=== PATIENT | male | born 1985 | race African-American/Black ===

== ENCOUNTER → 2016-12-23 15:28 | Emergency (ER) | payer OTHER ==
[~2016-12-23 15:28] MED LIST: Amoxicillin/Clavulanate TAB* 875 MG PO ONE
[2016-12-23 15:33] VITALS: BP 123/52
--- NOTE | 2016-12-23 16:53 | ED ---
Skin Complaint - HPI Summary HPI Summary: Patient presents with an abscess at the top of his gluteal cleft that has worsened over the last week. He has had four of these in the past, but they typically resolve on their own. He has pain and fluctuance, but no fever or drainage. - History of Current Complaint Chief Complaint: EDRashSkinAbscess Time Seen by Provider: 12/23/16 15:43 Stated Complaint: CYST ON BACK Hx Obtained From: Patient Onset/Duration: Started Weeks Ago - 1, Atraumatic, Worse Since - last week Timing: Constant Onset Severity: Mild Current Severity: Severe Pain Intensity: 5 Skin Location: Other: - superior gluteal cleft Character: Swelling, Pain, Redness Aggravating Symptom(s): Touch Alleviating Symptom(s): Nothing Associated Signs & Symptoms: Tenderness PMH/Surg Hx/FS Hx/Imm Hx Previously Healthy: Yes Infectious Disease History: Denies: Traveled Outside the [place] in Last 30 Days - Family History Known Family History: Positive: None - Social History Occupation: Employed Full-time Lives: With Family Alcohol Use: Occasionally Alcohol Amount: once a month Substance Use Type: Reports: None Smoking Status (MU): Never Smoked Tobacco Review of Systems Negative: Fever, Chills Positive: Other - pea size abscess superior gluteal cleft All Other Systems Reviewed And Are Negative: Yes Physical Exam Triage Information Reviewed: Yes Vital Signs On Initial Exam: Initial Vitals Temp Pulse Resp BP 98.7 F 82 18 123/52 12/23/16 15:29 12/23/16 15:29 12/23/16 15:29 12/23/16 15:29 Vital Signs Reviewed: Yes Appearance: Positive: Well-Appearing, Well-Nourished, Pain Distress Skin: Positive: Warm, Skin Color Reflects Adequate Perfusion, Dry, Tender - pea size abscess superior gluteal cleft, Soft Head/Face: Positive: Normal Head/Face Inspection Eyes: Positive: EOMI, NIECY, Conjunctiva Clear ENT: Positive: Hearing grossly normal Respiratory/Lung Sounds: Positive: Breath Sounds Present Cardiovascular: Positive: RRR Musculoskeletal: Negative: Edema Left Neurological: Positive: Sensory/Motor Intact, Alert, Oriented to Person Place, Time, NV Bundle Intact Distally Psychiatric: Positive: Affect/Mood Appropriate AVPU Assessment: Alert Procedures - Incision and Drainage Site: superior gluteal cleft Anesthesia: Local, Lidocaine Instrument(s): Scalpel Packing: Other - open to drain Diagnostics - Vital Signs Vital Signs Temp Pulse Resp BP Pulse Ox 12/23/16 15:32 98.7 F 81 20 123/52 98 12/23/16 15:29 98.7 F 82 18 123/52 - Laboratory Lab Statement: Any lab studies that have been ordered have been reviewed, and results considered in the medical decision making process. Course/Dx - Differential Diagnoses - Skin Complaint Differential Diagnoses: Abscess, Cellulitis, Contact Dermatitis, Local Allergic Reaction, MRSA, Urticaria, VRE - Diagnoses Provider Diagnoses: Abscess Discharge - Discharge Plan Condition: Stable Disposition: HOME Prescriptions: Amoxicillin/Clavulanate TAB* [Augmentin TAB 875*] 875 mg PO BID #15 tab Patient Education Materials: Abscess (ED) Forms: *Work Release Referrals: Tere Barrett MD [Primary Care Provider] - Additional Instructions: Please take the medication prescribed until it is completely gone. Soak your wound in warm soapy water several times daily to allow any further drainage. Cover with clean gauze as needed. Follow-up with your primary care provider for a wound check in 2-3 days. Please call the number listed for the surgeon for an appointment for evaluation as well. Return to the emergency department if symptoms worsen.
[2016-12-23] MEDS: Amoxicillin/Clavulanate TAB* 875 MG PO ONE ×2 (17:17→18:32)
== END | disposition home or self-care (01) ==
LOC: ED 15:28
DX: L02.91 Cutaneous abscess, unspecified (principal)
CPT/HCPCS: 10060; 87070; 87205; 87640; 87641; 99282; A9270-GY

== ENCOUNTER → 2017-04-04 18:48 | Emergency (ER) | payer OTHER ==
[~2017-04-04 18:48] MED LIST changes: -Amoxicillin/Clavulanate TAB* 875 MG PO ONE; +Sulfamethox/Trimethoprim DS 800/160* TAB PO ONE; +oxyCODONE/Acetamin 5/325 MG* TAB PO ONE
[2017-04-04 20:52] VITALS: BP 147/77
--- NOTE | 2017-04-04 23:54 | ED ---
Nina Hood Rebecca, scribed for PaulaRigoberto willams on 04/04/17 at 2015 . Skin Complaint - HPI Summary HPI Summary: Pt is a 31 y/o M who presents to ED c/o abscess for 3-4 days. Sx are in the sacral region with associated pain being severe, ranked 9/10. Sx aggravated and alleviated by nothing. Prior similar episodes of abscesses/cysts which he has had drained after allowing them to become significantly more severe, per pt. - History of Current Complaint Chief Complaint: EDRashSkinAbscess Time Seen by Provider: 04/04/17 20:02 Stated Complaint: CYST ON BACK Hx Obtained From: Patient Onset/Duration: Started Days Ago - 3-4 days, Still Present Current Severity: Severe Pain Intensity: 9 Pain Scale Used: 0-10 Numeric Skin Location: Other: - Sacral Character: Raised Aggravating Symptom(s): Nothing Alleviating Symptom(s): Nothing Associated Signs & Symptoms: Negative - Allergy/Home Medications Allergies/Adverse Reactions: Allergies Allergy/AdvReac Type Severity Reaction Status Date / Time No Known Allergies Allergy Verified 04/04/17 19:26 PMH/Surg Hx/FS Hx/Imm Hx Previously Healthy: Yes Endocrine/Hematology History: Denies: Hx Diabetes Cardiovascular History: Denies: Hx Coronary Artery Disease Infectious Disease History: No Infectious Disease History: Denies: Traveled Outside the [place] in Last 30 Days - Family History Known Family History: Negative: Diabetes - Social History Alcohol Use: Occasionally Alcohol Amount: once a month Substance Use Type: Reports: None Smoking Status (MU): Never Smoked Tobacco Review of Systems Negative: Fever Positive: Other - Abscess in the sacral region All Other Systems Reviewed And Are Negative: Yes Physical Exam - Summary Physical Exam Summary: Appearance: Well appearing, no pain distress Skin: warm, dry, reflects adequate perfusion Head/face: normal Eyes: EOMI, NIECY ENT: normal Neck: supple, nontender Respiratory: CTA, breath sounds present Cardiovascular: RRR, pulses symmetrical Abdomen: nontender, soft Bowel: present Musculoskeletal: strength/ROM intact, tenderness over the sacral area with mild swelling that is firm in consistency with no fluctuance Neuro: normal, sensory motor intact, A&Ox3 Triage Information Reviewed: Yes Vital Signs On Initial Exam: Initial Vitals Temp Pulse Resp BP Pulse Ox 99.5 F 78 16 131/70 100 04/04/17 19:20 04/04/17 19:20 04/04/17 19:20 04/04/17 19:20 04/04/17 19:20 Vital Signs Reviewed: Yes Diagnostics - Vital Signs Vital Signs Temp Pulse Resp BP Pulse Ox 04/04/17 19:20 99.5 F 78 16 131/70 100 - Laboratory Lab Statement: Any lab studies that have been ordered have been reviewed, and results considered in the medical decision making process. Course/Dx - Course Assessment/Plan: Pt is a 31 y/o M who presents to ED c/o abscess for 3-4 days, in the sacral region with associated pain being severe, ranked 9/10. Prior similar episodes of abscesses/cysts which he has had drained after allowing them to become significantly more severe, per pt. Pt reports that he would like to try Abx initially and will follow up with surgery for I&D. Advised to come to the ED for any worsening of symptoms and follow up for I&D in 3 days. Pt will be D/C to home with Dx of pilonidal cyst with abscess, Rx for Motrin, Bactrim and Percocet with a follow up with Dr. Levin (surgery). He understands and agrees. Elevated BP noted and advised to f/u. - Diagnoses Provider Diagnoses: Pilonidal cyst with abscess Discharge - Discharge Plan Condition: Stable Disposition: HOME Prescriptions: Ibuprofen TAB* [Motrin TAB* 600 MG] 600 mg PO Q8H PRN #20 tab MDD 3 PRN Reason: Pain Sulfamethox/Trimethoprim DS* [Bactrim DS 800/160 TAB*] 1 tab PO BID #20 tab oxyCODONE/Acetamin 5/325 MG* [Percocet 5/325 TAB*] 1 tab PO Q8H PRN #10 tab MDD 3 PRN Reason: Pain Patient Education Materials: Abscess (ED) Referrals: Tere Barrett MD [Primary Care Provider] - Jai Levin MD [Medical Doctor] - (Follow up with surgery for incision and drainage.) The documentation as recorded by the Nina clark Rebecca accurately reflects the service I personally performed and the decisions made by Adamaris hamm Emmanuel.
== END | disposition home or self-care (01) ==
LOC: ED 18:48
DX: L05.01 Pilonidal cyst with abscess (principal)
CPT/HCPCS: 99282; A9270-GY

== ENCOUNTER 2019-02-22 19:29 | Emergency (ER) | payer SELFPAY ==
[2019-02-22 19:56] VITALS: BP 139/66
--- NOTE | 2019-02-22 20:13 | UC ---
Complaint Male HPI - HPI Summary HPI Summary: 33-year-old male comes in with a chief complaint of burning with urination for several days. Also has noticed some blood in the urine. Denies any testicular pain or abdominal pain or flank pain. Denies any skin lesions. - History of Current Complaint Chief Complaint: UCGU Stated Complaint: PERSONAL ISSUE Time Seen by Provider: 02/22/19 19:51 Pain Intensity: 0 - Allergies/Home Medications Allergies/Adverse Reactions: Allergies Allergy/AdvReac Type Severity Reaction Status Date / Time No Known Allergies Allergy Verified 02/22/19 20:00 PMH/Surg Hx/FS Hx/Imm Hx Previously Healthy: Yes - Surgical History Surgical History: None - Family History Known Family History: Positive: None Negative: Diabetes - Social History Alcohol Use: Occasionally Alcohol Amount: once a month Substance Use Type: None Smoking Status (MU): Never Smoked Tobacco Review of Systems All Other Systems Reviewed And Are Negative: Yes Constitutional: Positive: Negative Skin: Positive: Negative Eyes: Positive: Negative ENT: Positive: Negative Respiratory: Positive: Negative Cardiovascular: Positive: Negative Gastrointestinal: Positive: Negative Genitourinary: Positive: Dysuria, Hematuria Motor: Positive: Negative Neurovascular: Positive: Negative Musculoskeletal: Positive: Negative Neurological: Positive: Negative Psychological: Positive: Negative Is Patient Immunocompromised?: No Physical Exam Triage Information Reviewed: Yes Appearance: Well-Appearing, No Pain Distress, Well-Nourished Vital Signs: Initial Vital Signs Temp 99.8 F 02/22/19 19:47 Pulse 86 02/22/19 19:47 Resp 12 02/22/19 19:47 BP 139/66 02/22/19 19:47 Pulse Ox 98 02/22/19 19:47 Vital Signs Reviewed: Yes Eye Exam: Normal Eyes: Positive: Conjunctiva Clear Neck: Positive: Supple Respiratory: Positive: Lungs clear, Normal breath sounds, No respiratory distress Cardiovascular: Positive: RRR Abdomen Description: Positive: Nontender, Soft. Negative: CVA Tenderness (R), CVA Tenderness (L) Bowel Sounds: Positive: Present Musculoskeletal: Positive: Strength Intact, ROM Intact Neurological: Positive: Alert Psychological: Positive: Age Appropriate Behavior Skin Exam: Normal Complaint Male Course/Dx - Course Course Of Treatment: I discussed the urine following findings with the patient and his family. There is blood in the urine no leukocytes or nitrites. Most common cause would be a urinary tract infection therefore treating with Bactrim DS by mouth twice a day for 7 days. However if the hematuria does not completely resolved he may need further workup and therefore I'm referring him to urology to ensure resolution of this issue. Patient's to be reevaluated sooner if worse or any questions or concerns. - Differential Dx/Diagnosis Provider Diagnosis: Hematuria, Dysuria Discharge - Sign-Out/Discharge Documenting (check all that apply): Patient Departure All imaging exams completed and their final reports reviewed: No Studies - Discharge Plan Condition: Stable Disposition: HOME Prescriptions: Sulfamethox/Trimethoprim DS* [Bactrim DS 800/160 TAB*] 1 tab PO BID #14 tab Patient Education Materials: Hematuria (ED), Dysuria (ED) Referrals: Tere Barrett MD [Primary Care Provider] - Liu Li MD [Medical Doctor] - Ryan Aguilar MD [Medical Doctor] - Additional Instructions: FOLLOW UP WITH UROLOGY FOR THE BLOOD IN YOUR URINE AND DYSURIA. GET RECHECKED SOONER IF YOUR CONDITION WORSENS; PAIN, FEVER, YOU FEEL ILL OR ANY QUESTIONS OR CONCERNS. - Billing Disposition and Condition Condition: STABLE Disposition: Home
[2019-02-22] MEDS ORDERED: Sulfamethox/Trimethoprim DS 800/160* TAB PO ONE (20:40)
[2019-02-23 22:36] LABS: Chlamydia trachomatis NAA Negative (Negative); Neisseria gonorrhoeae (GC) NAA Negative (Negative)
--- NOTE | 2019-02-24 16:52 | UC ---
- Progress Note Progress Note: notify pt no UTI stop antibiotic recheck if still symptomatic Course/Dx - Diagnoses Provider Diagnoses: Hematuria, Dysuria Discharge - Sign-Out/Discharge Documenting (check all that apply): Post-Discharge Follow Up All imaging exams completed and their final reports reviewed: No Studies - Discharge Plan Condition: Stable Disposition: HOME Prescriptions: Sulfamethox/Trimethoprim DS* [Bactrim DS 800/160 TAB*] 1 tab PO BID #14 tab Patient Education Materials: Hematuria (ED), Dysuria (ED) Referrals: Tere Barrett MD [Primary Care Provider] - Liu Li MD [Medical Doctor] - Ryan Aguilar MD [Medical Doctor] - Additional Instructions: FOLLOW UP WITH UROLOGY FOR THE BLOOD IN YOUR URINE AND DYSURIA. GET RECHECKED SOONER IF YOUR CONDITION WORSENS; PAIN, FEVER, YOU FEEL ILL OR ANY QUESTIONS OR CONCERNS. - Billing Disposition and Condition Condition: STABLE Disposition: Home
== END 2019-02-22 20:45 | disposition home or self-care (01) ==
LOC: UCEAST 19:29
DX: R30.0 Dysuria (principal); R31.9 Hematuria, unspecified
CPT/HCPCS: 81002; 87086; 87491; 87591; 99212; A9270-GY; G0463

== ENCOUNTER 2019-08-08 16:04 | Emergency (ER) | payer OTHER ==
--- NOTE | 2019-08-08 17:42 | ED ---
Skin Complaint - HPI Summary HPI Summary: Patient complains of recurrent abscess at top of gluteal cleft 3 in the past 2 years. Current Symptoms have been present for a week , including pain, redness , swelling. Denies fever, cough, sore throat, CP, SOB, N/3/D, abdomen, change in urine, change in BM. Medical history is none. - History of Current Complaint Chief Complaint: EDRashSkinAbscess Time Seen by Provider: 08/08/19 17:36 Stated Complaint: ABSCESS ON BACK Hx Obtained From: Patient Onset/Duration: Started Days Ago Timing: Constant Onset Severity: Moderate Current Severity: Moderate Pain Intensity: 7 Pain Scale Used: 0-10 Numeric Skin Location: Discrete Character: Swelling, Pain, Redness, Raised, Painful Aggravating Symptom(s): Touch Alleviating Symptom(s): Nothing Associated Signs & Symptoms: Drainage - Allergy/Home Medications Allergies/Adverse Reactions: Allergies Allergy/AdvReac Type Severity Reaction Status Date / Time No Known Allergies Allergy Verified 08/08/19 16:10 PMH/Surg Hx/FS Hx/Imm Hx Endocrine/Hematology History: Denies: Hx Diabetes Cardiovascular History: Reports: Hx Hypertension Denies: Hx Coronary Artery Disease History: Denies: Hx Dialysis Sensory History: Denies: Hx Eye Prosthesis Opthamlomology History: Denies: Hx Legally Blind EENT History: Denies: Hx Deafness Neurological History: Denies: Hx Dementia Infectious Disease History: No Infectious Disease History: Denies: Traveled Outside the [place] in Last 30 Days - Family History Known Family History: Positive: None Negative: Diabetes - Social History Alcohol Use: Occasionally Alcohol Amount: once a month Substance Use Type: Reports: None Smoking Status (MU): Never Smoked Tobacco Review of Systems Constitutional: Negative Eyes: Negative ENT: Negative Cardiovascular: Negative Respiratory: Negative Gastrointestinal: Negative Genitourinary: Negative Musculoskeletal: Negative Skin: Other Neurological: Negative Psychological: Normal All Other Systems Reviewed And Are Negative: Yes Physical Exam - Summary Physical Exam Summary: 4 cm x 4 cm area of erythema and induration at top of gluteal cleft. Positive apical abscess. I&D performed with significant improvement drainage. Wound packed. Triage Information Reviewed: Yes Vital Signs On Initial Exam: Initial Vitals Temp Pulse Resp BP Pulse Ox 98.1 F 103 19 134/83 96 08/08/19 16:06 08/08/19 16:06 08/08/19 16:06 08/08/19 16:06 08/08/19 16:06 Vital Signs Reviewed: Yes Appearance: Positive: Well-Appearing Skin: Positive: Warm Head/Face: Positive: Normal Head/Face Inspection Eyes: Positive: Normal Neck: Positive: Supple Respiratory/Lung Sounds: Positive: Clear to Auscultation Cardiovascular: Positive: Normal Abdomen Description: Positive: Nontender Musculoskeletal: Positive: Normal Neurological: Positive: Normal Psychiatric: Positive: Normal AVPU Assessment: Alert - Chaparrita Coma Scale Best Eye Response: 4 - Spontaneous Best Motor Response: 6 - Obeys Commands Best Verbal Response: 5 - Oriented Coma Scale Total: 15 Procedures - Sedation Patient Received Moderate/Deep Sedation with Procedure: No - Incision and Drainage 1 Site: gluteal cleft Anesthesia: Local, Lidocaine Instrument(s): Scalpel Packing: Other - iodoform Diagnostics - Vital Signs Vital Signs Temp Pulse Resp BP Pulse Ox 08/08/19 16:06 98.1 F 103 19 134/83 96 - Laboratory Lab Statement: Any lab studies that have been ordered have been reviewed, and results considered in the medical decision making process. Course/Dx - Diagnoses Provider Diagnoses: Pilonidal abscess Discharge ED - Sign-Out/Discharge Documenting (check all that apply): Patient Departure - Discharge Plan Condition: Stable Disposition: HOME Prescriptions: Sulfamethox/Trimethoprim DS* [Bactrim DS 800/160 TAB*] 1 tab PO BID 10 Days #20 tab Patient Education Materials: Pilonidal Cyst (ED) Referrals: No Primary Care Phys,NOPCP [Primary Care Provider] - Yamil Maciel MD [Medical Doctor] - Additional Instructions: In the buttocks as directed twice a day. Alternate ibuprofen 600 mg with Tylenol 650 mg every 3 hours as needed for pain. Return to the ED in 2 days for follow-up evaluation. For permanent improvement is follow-up with surgery Dr. Maciel. Return to the ED for any new or worsening symptoms. - Billing Disposition and Condition Condition: STABLE Disposition: Home
[2019-08-08] MEDS ORDERED: Sulfamethox/Trimethoprim DS 800/160* TAB PO ONE (17:51)
[2019-08-08] MEDS ORDERED: oxyCODONE TAB* 5 MG TAB PO ONE (18:28)
[2019-08-08 18:46] VITALS: BP 132/96
--- NOTE | 2019-08-11 10:40 | ED ---
Imaging and Labs Follow Up Follow Up Type: Labs/Cultures Labs/Culture Result: Wound culture final grew Prevotella Bivia Patient Communication/Plan: Patient was placed on Bactrim prior to discharge Other Patient Communication/Plan: Sensitivities of this organism show Augmentin and Flagyl most sensitive Pt was given Bactrim prior to discharge Called patient at 10:50am - GF answered - pt not home - will tell him to call ED back If symptomatic - recommend flagyl or augmentin If pt improved - no tx necessary d/t adequate I and D Provider Diagnoses: Pilonidal abscess
== END 2019-08-08 18:42 | disposition home or self-care (01) ==
LOC: ED 16:04
DX: L05.01 Pilonidal cyst with abscess (principal); I10 Essential (primary) hypertension
CPT/HCPCS: 87070; 87076; 87185; 87205; 99282; A9270-GY